=== PATIENT | female | born 2005 | race Caucasian/White ===

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

== ENCOUNTER 2024-02-26 21:02 | Emergency (ER) | payer OTHER ==
[~2024-02-26] VITALS: Ht 165.1 cm; Wt 68.2 kg
[~2024-02-26 21:02] MED LIST: MACROBID 1100 MG/CAP PO
[2024-02-26 21:08] VITALS: BP 115/80; TEMP 98.2
[2024-02-26] MEDS ORDERED: MACROBID 1100 MG/CAP PO (21:26)
[2024-02-26] MEDS ORDERED: Nitrofurantoin (Mono/Macro) 100 MG CAP PO ONE (21:30)
[2024-02-26 21:36] VITALS: PULSE 81
[2024-02-26 22:08] LABS: COLLECTION METHOD CLEAN CATCH
[2024-02-26 22:17] LABS: PH 5.5 (5.0-8.5); URINE APPEARANCE CLOUDY (CLEAR/HAZY); URINE BLOOD NEGATIVE (NEGATIVE); URINE COLOR Dark Yellow (YELLOW); URINE GLUCOSE NEGATIVE (NEGATIVE); URINE KETONE TRACE (NEGATIVE); URINE NITRATE POSITIVE (NEGATIVE); URINE PROTEIN(semi-quant) 1+ (NEGATIVE)
== END 2024-02-26 21:37 | disposition home or self-care (01) ==
LOC: COL.ER 21:02
PROVIDERS: Personal Emergency Response Attendant
DX: R30.0 Dysuria (principal); Z87.440 Personal history of urinary (tract) infections

== ENCOUNTER 2024-03-21 13:47 | Emergency (ER) | payer OTHER ==
[~2024-03-21] VITALS: Ht 162.6 cm; Wt 68.2 kg
[2024-03-21 13:52] VITALS: TEMP 98.2
[2024-03-21] MEDS ORDERED: NS 1,000 ML IV ONE (14:00)
[2024-03-21 14:14] LABS: COLLECTION METHOD CLEAN CATCH
[2024-03-21 14:25] LABS: URINE APPEARANCE TURBID (CLEAR/HAZY); URINE BLOOD 3+ (NEGATIVE); URINE COLOR Dark Yellow (YELLOW); URINE GLUCOSE NEGATIVE (NEGATIVE); URINE KETONE NEGATIVE (NEGATIVE); URINE NITRATE POSITIVE (NEGATIVE); URINE PROTEIN(semi-quant) 3+ (NEGATIVE)
[2024-03-21 14:26] LABS: BASO # 0.1 K/mm3 (0.0-0.2); BASO % 0.4 % (0.0-2.0); EOS # 0.1 K/mm3 (0.0-0.7); EOS % 0.5 % (0.0-4.0); GRAN # 9.1 K/mm3 (1.4-6.5); GRAN % 76.4 % (42.2-75.2); HEMATOCRIT 43.7 % (35.0-45.0); HEMOGLOBIN 14.5 g/dl (12.0-15.0); LYMPH # 1.9 K/mm3 (1.2-3.4); LYMPH % 16.2 % (20.0-51.0); MEAN CELL VOLUME 89 fl (80.0-95.0); MEAN CORPUSCULAR HEMOGLOBIN 30 pg (26-32); MEAN CORPUSCULAR HGB CONC 33 g/dl (33.0-37.0); MEAN PLATELET VOLUME 10.5 fl (7.4-10.4); MONO # 0.8 K/mm3 (0.1-0.6); MONO % 6.3 % (1.7-9.3); PLATELET COUNT 236 K/mm3 (130-400); RED BLOOD COUNT 4.91 M/mm3 (4.10-5.30); REDCELL DISTRIBUTION WIDTH-CV 12.8 % (11.5-14.5)
[2024-03-21 14:39] LABS: URINE RBC 20-50 /hpf (0-2); URINE WBC 20-50 /hpf (0-2)
[2024-03-21 14:40] LABS: SQUAMOUS EPITHELIAL NONE SEEN /hpf (0-10); URINE BACTERIA MANY /hpf (NONE SEEN)
[2024-03-21 14:50] LABS: BILIRUBIN,TOTAL 0.9 mg/dL (0.2-1.2); CALCIUM 9.6 mg/dL (8.4-10.2); CREATININE, serum 0.98 mg/dL (0.57-1.11); POTASSIUM 3.3 mEq/L (3.5-4.5); TOTAL PROTEIN 7.5 g/dl (6.2-8.1)
[2024-03-21] MEDS ORDERED: cefTRIAXone 1 G in Water For Injection,Sterile 10 ML IV ONE (16:00)
[2024-03-21] MEDS ORDERED: CEPHALEXIN500 M1 PO (16:32)
[2024-03-21 16:39] VITALS: BP 102/88; PULSE 82
== END 2024-03-21 17:01 | disposition home or self-care (01) ==
LOC: COL.ER 13:47
PROVIDERS: Emergency Medicine; Physician Assistant
DX: N39.0 Urinary tract infection, site not specified (principal)
CPT/HCPCS: J0696; J7030